=== PATIENT | female | born 1945 | race Caucasian/White ===

== ENCOUNTER 2019-09-24 16:13 | Emergency (ER) | payer OTHER ==
--- OUTSIDE RECORDS SUMMARY | 2019-09-24 16:15 | XMS REPORT ---
:1945 [facility] Address [address] [place] [address] Dr. iMchaels. [address] [place] [id number] Care Team Providers Name Role Phone Unavailable Unavailable Unavailable Problems This patient has no known problems. Allergies, Adverse Reactions, Alerts This patient has no known allergies or adverse reactions. Medications This patient has no known medications.
[2019-09-24] MEDS ORDERED: MORPHINE 4 MG/ML SYR ONE (17:14)
[2019-09-24] MEDS ORDERED: ONDANSETRON 4 MG (ODT) TAB ONE (17:14)
--- NOTE | 2019-09-24 17:41 | RAD REPORT ---
EXAM DESCRIPTION: RAD - Tib Fib Right - 09/24/2019 5:29 pm CLINICAL HISTORY: PAIN Trauma, pain COMPARISON: None FINDINGS: Right tibia/ fibula, ankle and foot -multiple projections are submitted The bones are osteopenic. No acute fracture or dislocation evident. Soft tissue swelling is seen abou t the ankle. Cortical thickening along the second metatarsal shaft could indicate healing stress frac ture.
[2019-09-24] MEDS ORDERED: FENTANYL CITR 100 MCG/2 ML ONE (18:20)
--- NOTE | 2019-09-24 19:00 | ER ---
Nurse's Notes [facility] Name: Rosa De Age: 73 yrs Sex: Female : 1945 Arrival Date: 09/24/2019 Time: 16:17 Bed 17 Private MD: Anibal Medrano Diagnosis: Pain in right ankle and joints of right foot Presentation: 09/24 16:37 Presenting complaint: Patient states: had a stress fracture in right ankle, has been iw wearing a boot for a couple weeks, missed a step coming down the porch. Care prior to arrival: None. 16:37 Acuity: ASHER 4 iw 16:37 Method Of Arrival: Ambulatory iw 16:38 Transition of care: patient was not received from another setting of care. Onset of iw symptoms was September 24, 2019. Risk Assessment: Do you want to hurt yourself or someone else? Patient reports no desire to harm self or others. Initial Sepsis Screen: Does the patient meet any 2 criteria? No. Patient's initial sepsis screen is negative. Does the patient have a suspected source of infection? No. Patient's initial sepsis screen is negative. Historical: - Allergies: 16:39 Iodine; iw 16:39 PENICILLINS; iw 16:39 Sulfa (Sulfonamide Antibiotics); iw 16:39 Prednisone; iw - Ebola Screening: : Patient negative for fever greater than or equal to 101.5 degrees Fahrenheit, and additional compatible Ebola Virus Disease symptoms Patient denies travel to an Ebola-affected area in the 21 days before illness onset No symptoms or risks identified at this time. Screenin:56 Abuse screen: Denies threats or abuse. Nutritional screening: No deficits noted. em Tuberculosis screening: No symptoms or risk factors identified. Fall Risk None identified. Assessment: 17:15 General: Appears in no apparent distress. uncomfortable, Behavior is calm, cooperative. em Pain: Complains of pain in right foot Pain currently is 9 out of 10 on a pain scale. Neuro: Level of Consciousness is awake, alert, obeys commands, Oriented to person, place, time, situation. Cardiovascular: Capillary refill < 3 seconds Patient's skin is warm and dry. Derm: Skin is intact, is healthy with good turgor, Decubitus. Musculoskeletal: Capillary refill < 3 seconds, Range of motion: intact in all extremities. 18:10 Reassessment: reports pain is 8/10, provider notified, new medication orders received. em Vital Signs: 16:39 BP 152 / 78; Pulse 70; Resp 16; Temp 98.2; Pulse Ox 100% on R/A; Weight 49.9 kg; Height iw 5 ft. 1 in. (154.94 cm); 16:39 Body Mass Index 20.78 (49.90 kg, 154.94 cm) iw ED Course: 16:17 Patient arrived in ED. mr 16:17 Tomi Ibrahim MD is Attending Physician. kdr 16:17 Anibal Medrano is Private Physician. mr 16:38 Triage completed. iw 16:56 Juan C Armstrong LVN is Primary Nurse. em 16:56 Patient has correct armband on for positive identification. Bed in low position. Call em light in reach. Side rails up X2. 16:56 No provider procedures requiring assistance completed. Patient did not have IV access em during this emergency room visit. 17:29 Foot Right 3 View XRAY In Process Unspecified. EDMS 17:30 Ankle Right 3 View XRAY In Process Unspecified. EDMS 17:30 Tib Fib Right XRAY In Process Unspecified. EDMS Administered Medications: 17:34 Drug: Zofran 4 mg Route: PO; em 18:18 Follow up: Response: No adverse reaction em 17:35 Drug: morphine 4 mg Route: IM; Site: right deltoid; em 18:18 Follow up: Response: No adverse reaction; Pain is unchanged, physician notified em 18:18 Not Given (Other Intervention Used): fentaNYL (PF) 25 mcg IM once; RASS on ADMIN: em Combtv4, Very Agttd3, Agttd2, Rstlss1, AlertClm0, Drwsy-1, Lt Sdtn-2, Mod Sdtn-3, Dp Sdtn-4, UnArsble-5 18:23 Drug: fentaNYL (PF) 50 mcg Route: IM; Site: left deltoid; em 18:57 Follow up: Response: No adverse reaction; Pain is decreased em 19:18 Drug: fentaNYL Patch (50 mcg/hr) 1 patches {Note: applied to right side of back.} em Route: Transdermal; Site: affected area; 19:23 Follow up: Response: Medication administered at discharge. em Outcome: 18:57 Discharge ordered by . kdr 19:23 Discharged to home via wheelchair, with family. em 19:23 Condition: good 19:23 Discharge instructions given to patient, family, Instructed on discharge instructions, follow up and referral plans. medication usage, Demonstrated understanding of instructions, follow-up care, medications, Prescriptions given X 1. 19:24 Patient left the ED. em Signatures: Dispatcher [employer] EDOH Tomi Ibrahim MD MD kdr Rivera, Mary mr Juan C Armstrong, MACHINE OPERATOR HOP WORKER MACHINE OPERATOR HOP WORKER em Suha Kemp, RN RN iw
[2019-09-24] MEDS ORDERED: FENTANYL 50 MCG/PATCH TD ONE (19:01)
--- NOTE | 2019-09-24 19:01 | EDPHYS ---
Physician Documentation [facility] Name: Rosa De Age: 73 yrs Sex: Female : 1945 Arrival Date: 09/24/2019 Time: 16:17 Bed 17 Private MD: Anibal Medrano ED Physician Tomi Ibrahim HPI: 09/24 17:32 This 73 yrs old Female presents to ER via Ambulatory with complaints of Fall kdr Injury, Ankle Injury. 17:32 The patient presents with an injury, pain, that is acute, swelling, tenderness. The kdr complaints affect the left ankle. Onset: The symptoms/episode began/occurred suddenly, 4 hour(s) ago. Context: The problem was sustained at home, at a friend's home, at a relative's home, resulted from a mis-step by the patient, Missed a step and stepped down hard on the previously injured right ankle/heel pain. Associated signs and symptoms: The patient has no apparent associated signs or symptoms. Modifying factors: The symptoms are alleviated by nothing, the symptoms are aggravated by weight bearing, movement. Severity of symptoms: At their worst the symptoms were mild, moderate, just prior to arrival, in the emergency department the symptoms are unchanged. The patient has experienced similar episodes in the past, a few times, The patient had a prior stress fracture to her right heel/foot and has been in a walking boot which she was wearing when the incident occurred.. The patient has been recently seen by a physician: the patient's primary care provider. Historical: - Allergies: 16:39 Iodine; iw 16:39 PENICILLINS; iw 16:39 Sulfa (Sulfonamide Antibiotics); iw 16:39 Prednisone; iw - Ebola Screening: : Patient negative for fever greater than or equal to 101.5 degrees Fahrenheit, and additional compatible Ebola Virus Disease symptoms Patient denies travel to an Ebola-affected area in the 21 days before illness onset No symptoms or risks identified at this time. ROS: 17:32 Constitutional: Negative for fever, chills, and weight loss. kdr 17:32 MS/extremity: Positive for injury or acute deformity, pain, swelling, tenderness, of the lateral aspect of right calf, right ankle, right Achilles, right heel, right zapata and anterior aspect of right ankle. Exam: 17:32 Constitutional: This is a well developed, well nourished patient who is awake, alert, kdr and in no acute distress. Head/Face: Normocephalic, atraumatic. Eyes: Pupils equal round and reactive to light, extra-ocular motions intact. Lids and lashes normal. Conjunctiva and sclera are non-icteric and not injected. Cornea within normal limits. Periorbital areas with no swelling, redness, or edema. 17:32 Musculoskeletal/extremity: Extremities: grossly normal except: noted in the right medial malleolus, right Achilles, medial aspect of right heel, medial aspect of right foot and right zapata: Vital Signs: 16:39 BP 152 / 78; Pulse 70; Resp 16; Temp 98.2; Pulse Ox 100% on R/A; Weight 49.9 kg; Height iw 5 ft. 1 in. (154.94 cm); 16:39 Body Mass Index 20.78 (49.90 kg, 154.94 cm) iw MDM: 17:32 Data reviewed: vital signs, nurses notes, lab test result(s), radiologic studies. kdr Counseling: I had a detailed discussion with the patient and/or guardian regarding: the historical points, exam findings, and any diagnostic results supporting the discharge/admit diagnosis, radiology results, the need for outpatient follow up. 18:55 ED course: The patient looked much more comfortable. She indicated that she was feeling kdr better though the pain was not entirely resolved. 18:57 Patient medically screened. kdr 09/24 17:05 Order name: Foot Right 3 View XRAY kdr 09/24 17:05 Order name: Ankle Right 3 View XRAY kdr 09/24 17:05 Order name: Tib Fib Right XRAY; Complete Time: 18:09 kdr Administered Medications: 17:34 Drug: Zofran 4 mg Route: PO; em 18:18 Follow up: Response: No adverse reaction em 17:35 Drug: morphine 4 mg Route: IM; Site: right deltoid; em 18:18 Follow up: Response: No adverse reaction; Pain is unchanged, physician notified em 18:18 Not Given (Other Intervention Used): fentaNYL (PF) 25 mcg IM once; RASS on ADMIN: em Combtv4, Very Agttd3, Agttd2, Rstlss1, AlertClm0, Drwsy-1, Lt Sdtn-2, Mod Sdtn-3, Dp Sdtn-4, UnArsble-5 18:23 Drug: fentaNYL (PF) 50 mcg Route: IM; Site: left deltoid; em 18:57 Follow up: Response: No adverse reaction; Pain is decreased em 19:18 Drug: fentaNYL Patch (50 mcg/hr) 1 patches {Note: applied to right side of back.} em Route: Transdermal; Site: affected area; 19:23 Follow up: Response: Medication administered at discharge. em Disposition: 09/24/19 18:57 Discharged to Home. Impression: Pain in right ankle and joints of right foot. - Condition is Stable. - Discharge Instructions: Musculoskeletal Pain, Ankle Pain. - Prescriptions for Tramadol 50 mg Oral Tablet - take 1 tablet by ORAL route every 12 hours as needed; 8 tablet. - Medication Reconciliation Form, Thank You Letter, Prescription Opioid Use form. - Follow up: Private Physician; When: 2 - 3 days; Reason: If symptoms return, Further diagnostic work-up, Recheck today's complaints, Continuance of care, Re-evaluation by your physician. - Problem is an acute exacerbation. - Symptoms have improved. Signatures: Dispatcher [employer] EDMS Tomi Ibrahim MD MD [facility] Juan C Armstrong, MANAGER ETL MANAGER ETL em Suha Kemp RN RN iw Corrections: (The following items were deleted from the chart) 19:24 18:57 09/24/2019 18:57 Discharged to Home. Impression: Pain in right ankle and joints em of right foot. Condition is Stable. Forms are Medication Reconciliation Form, Thank You Letter, Antibiotic Education, Prescription Opioid Use. Follow up: Private Physician; When: 2 - 3 days; Reason: If symptoms return, Further diagnostic work-up, Recheck today's complaints, Continuance of care, Re-evaluation by your physician. Problem is an acute exacerbation. Symptoms have improved. kdr
[2019-09-24 20:28] VITALS: BP 152/78; TEMP 98.2; O2SAT 100
--- NOTE | 2019-09-25 11:39 | RAD REPORT ---
EXAM DESCRIPTION: RAD - Ankle Right 3 View - 09/24/2019 5:29 pm CLINICAL HISTORY: PAIN Trauma, pain COMPARISON: None FINDINGS: Right tibia/ fibula, ankle and foot -multiple projections are submitted The bones are osteopenic. No acute fracture or dislocation evident. Soft tissue swelling is seen abou t the ankle. Cortical thickening along the second metatarsal shaft could indicate healing stress frac ture.
== END 2019-09-24 19:24 | disposition home or self-care (01) ==
LOC: ER 16:13
DX: M25.571 Pain in right ankle and joints of right foot (principal); X50.1XXA Overexertion from prolonged static or awkward postures, initial encounter; Y93.9 Activity, unspecified; Y92.9 Unspecified place or not applicable
CPT/HCPCS: 73630; 73590; 73610; 96372; 99283; J3010